=== PATIENT | male | born 1990 | race African-American/Black ===

== ENCOUNTER 2019-02-01 23:37 | Emergency (ER) | payer OTHER ==
[~2019-02-01] VITALS: Ht 175.3 cm; Wt 95.0 kg
[2019-02-02 01:17] VITALS: BP 146/87
== END 2019-02-02 01:17 | disposition home or self-care (01) ==
LOC: ER 23:37
DX: R03.0 Elevated blood-pressure reading, without diagnosis of hypertension (principal)
CPT/HCPCS: 99281